=== PATIENT | male | born 1975 | race Two or more races ===

== ENCOUNTER 2016-11-20 07:34 | Day surgery (SDC) | payer OTHER ==
[~2016-11-20 07:34] MED LIST: FENTANYL 250 MCG/5 ML AMP IV PRN; IV START KIT ONE; LACTATED RINGERS 1,000 ML IV SCH; LACTATED RINGERS 1,000 ML ONE; LIDOCAINE Viscous 2% 15 ML UDCUP PO PRN; MIDAZOLAM HCL 5 MG/5 ML VIAL IV PRN
[2016-11-20] MEDS ORDERED: FENTANYL 250 MCG/5 ML AMP ONE (08:33)
[2016-11-20] MEDS ORDERED: MIDAZOLAM HCL 5 MG/5 ML VIAL ONE (08:33)
[2016-11-20] MEDS ORDERED: LIDOCAINE Viscous 2% 15 ML UDCUP ONE (08:47)
[2016-11-20 13:24] LABS: HELICOBACTER PYLORII DETECTION NEGATIVE (NEGATIVE)
--- NOTE | 2016-11-25 09:57 | SURGPATH ---
[facility] [address] [place] [id number] Patient Name: TED ROBLES MR#: [id number] : 1975 Gender: M Specimen #: [id number] Collected: 11/20/2016 Received: 11/21/2016 Reported: 11/25/2016 Submitting Phys: KERRI CRESPO Copy To Phys: [facility] V Clinical History / Pre-Operative Diagnosis: EPIGASTRIC PAIN; NAUSEA; RULE OUT GIARDIA, CELIAC SPRUE AND GASTRITIS Specimen Source / Surgical Procedure Performed: #1-DUODENAL; #2-ANTRAL Interpretation: 1. DUODENUM, BIOPSY: - NO PATHOLOGIC ABNORMALITIES 2. GASTRIC ANTRUM, BIOPSY: - NO PATHOLOGIC ABNORMALITIES Electronically Signed Out Oneal Carvajal M.D. Gross Description: #1 The specimen is received in a formalin filled container labeled with the patient's name and "duodenal biopsy". Two wong-moralez biopsies are 0.3 and 0.4 cm. Totally embedded in cassette #1. #2 The specimen is received in a formalin filled container labeled with the patient's name and "antral". A single wong biopsy is 0.3 cm. Totally embedded in cassette #2. Omero Sampson Microscopic Description: 1. The sections show fragments of small bowel mucosa exhibiting a normal architectural pattern without evidence of villous blunting. There are no inflammatory or neoplastic features and there are no microorganisms identified. 2. The sections show fragments of gastric mucosa exhibiting a normal architectural pattern. There are no inflammatory or neoplastic features and there are no Helicobacter-like organisms identified. 1: 44014 2: 87289 R10.13
== END 2016-11-20 11:05 | disposition home or self-care (01) ==
LOC: SDC 07:34
PROVIDERS: ATTEND Internal Medicine Gastroenterology
PROC: 0DB98ZX Excision of Duodenum, Via Natural or Artificial Opening Endoscopic, Diagnostic (ICD-10-PCS; principal; 2016-11-20)
PROC: 0DB68ZX Excision of Stomach, Via Natural or Artificial Opening Endoscopic, Diagnostic (ICD-10-PCS; 2016-11-20)
DX: K29.70 Gastritis, unspecified, without bleeding (principal); K29.80 Duodenitis without bleeding
CPT/HCPCS: 87081; 43239; J3010; J2250; A9270; J7120